=== PATIENT | male | born 1960 | race Two or more races ===

== ENCOUNTER 2021-06-30 05:35 | Day surgery (SDC) | payer OTHER | END 2021-06-30 11:30 | disposition home or self-care (01) | LOC: CIR.AMB 05:35 | PROVIDERS: ATTEND Otolaryngology Otology & Neurotology | DX: H90.72 Mixed conductive and sensorineural hearing loss, unilateral, left ear, with unrestricted hearing on the contralateral side (principal); Z20.822 Contact with and (suspected) exposure to COVID-19 ==